=== PATIENT | female | born 1950 | race Caucasian/White ===

== ENCOUNTER 2016-06-26 12:16 | Emergency (ER) | payer BC ==
[~2016-06-26] VITALS: Ht 152.4 cm; Wt 79.2 kg
[~2016-06-26 12:16] MED LIST: ATOR-22 PO; DIPH-437 PO; LORA-741 PO; LOSA1TAB PO; OMEG10007 PO; VITACAP26 PO; ZINC1CAP PO
[2016-06-26 12:20] VITALS: TEMP 36.9; Ht 152.4 cm; Wt 79.2 kg
[2016-06-26] MEDS ORDERED: omega red PO (12:34)
[2016-06-26] MEDS ORDERED: ASPI81TA28 PO (12:34)
[2016-06-26] MEDS ORDERED: [UNRECOGNIZED DRUG - OTHER] (12:34)
[2016-06-26] MEDS ORDERED: DIPH1TAB PO (12:34)
[2016-06-26] MEDS ORDERED: HYZ/10015 PO (12:34)
[2016-06-26] MEDS ORDERED: MULT-506 PO (12:35)
--- NOTE | 2016-06-26 12:56 | EMERGENCY ROOM VISIT NOTE ---
History Report prepared by Anali: Elan Eckert Under the Supervision of: Dr. Fermin Fraire D.O. First contact with patient: 12:40 Chief Complaint: HYPERTENSION Stated Complaint: ELEVATED BP History of Present Illness The patient is a 65 year old female with a history of hypertension who presents to the Emergency Room with complaints of worsening hypertension that started a few days ago. Her last reading prior to arrival was 170/101. She says she has been on her blood pressure medication for 4 years, and she has not had any changes in her medication. The patient does note that ever since she was put on the medication, she has had this woozy feeling and a slight headache. She denies any new symptoms, except for some anxiety, which is normal for when she is hypertensive. The patient specifically denies any nausea, chest pain, shortness of breath, or urinary symptoms. She tried to get an appointment with her primary care doctor, but she could not get one until later this afternoon. The patient had melanoma removed in January, and has a history of lymph node removal. Source of History: patient Onset: A few days ago Position: other (global - hypertension) Symptom Intensity: 170/101 prior to arrival Timing: worsening Associated Symptoms: No SOB, No chest pain, No nausea, No urinary symptoms Note: Associated symptoms: Anxiousness. Review of Systems See HPI for pertinent positives & negatives. A total of 10 systems reviewed and were otherwise negative. Past Medical & Surgical Medical Problems: (1) HTN (hypertension) Surgical Problems: (1) History of cholecystectomy Family History Cancer Gallbladder disease Hypertension Social History Smoking Status: Never Smoker Smokeless Tobacco Use: No Alcohol Use: none Marital Status: Housing Status: lives with family Occupation Status: unemployed Current/Historical Medications Scheduled Aspirin (Aspirin Ec), 81 MG PO QAM Atorvastatin (Lipitor), 20 MG PO QPM Diphenhydramine Hcl (Benadryl Allergy), 25 MG PO QAM Hctz/Losartan (Hyzaar 25MG/100MG), 1 TAB PO QAM Lorazepam (Ativan), 0.5 MG PO DIRECTED Multivitamin (Multivitamin), 1 TAB PO DAILY [omega red], 1 TAB PO QAM Allergies Coded Allergies: No Known Allergies (Verified , 06/26/16) Physical Exam Vital Signs Date Time Temp Pulse Resp B/P Pulse Ox O2 Delivery O2 Flow Rate FiO2 06/26/16 15:15 92 18 133/92 97 Room Air 06/26/16 14:21 89 16 150/96 97 Room Air 06/26/16 13:26 85 18 144/88 98 Room Air 06/26/16 13:20 92 16 144/88 97 Room Air 06/26/16 13:16 85 06/26/16 13:10 98 Room Air 06/26/16 13:10 98 Room Air 06/26/16 12:20 36.9 107 18 167/117 97 Room Air Physical Exam GENERAL: Patient is awake, alert, and in no acute distress. Patient is resting comfortably and showing no signs of anxiety EYES: The conjunctivae are clear. The pupils are round and reactive. EARS, NOSE, MOUTH AND THROAT: The nose is without any evidence of any deformity. Mucous membranes are moist tongue is midline NECK: The neck is nontender and supple. RESPIRATORY: Normal respiratory effort is noted there is no evidence of wheezing rhonchi or rales CARDIOVASCULAR: Regular rate and rhythm noted there no murmurs rubs or gallops normal S1 normal S2 GASTROINTESTINAL: The abdomen is soft. Bowel sounds are present in all quadrants. Abdomen is nontender MUSCULOSKELETAL/EXTREMITIES: There is no evidence of gross deformity full range of motion is noted in the hips and shoulders SKIN: There is no obvious evidence of any rash. There are no petechiae, pallor or cyanosis noted. NEUROLOGIC: Patient is awake alert and oriented x3 strength is symmetric patellar reflexes are 2+ bilaterally Medical Decision & Procedures ER Provider Diagnostic Interpretation: Radiology results as stated below per my review and radiologist interpretation: CT HEAD WITHOUT CONTRAST (CT) CLINICAL HISTORY: Headache, hypertension, near-syncope. COMPARISON STUDY: No previous studies for comparison. TECHNIQUE: Axial CT of the brain is performed from the vertex to the skull base. IV contrast was not administered for this examination. CT DOSE: 537.48 mGy.cm FINDINGS: No intra or extra-axial mass lesions are visualized. There is no CT evidence of acute cortical infarction. There is no evidence of midline shift. There is no acute hemorrhage. No calvarial fractures are visualized. There is no evidence of pathologic ventricular dilatation. There is no evidence of acute sinusitis IMPRESSION: Normal noncontrast head CT for age Electronically signed by: Mason Solomon M.D. 06/26/2016 1:38 PM Dictated Date/Time: 06/26/2016 1:37 PM CHEST ONE VIEW PORTABLE CLINICAL HISTORY: Atypical chest pain. Hypertension. COMPARISON STUDY: No previous studies for comparison. FINDINGS: The cardiac and mediastinal contours are normal. There is no evidence of focal pulmonary consolidation. There is no evidence of failure. No pleural effusions are visualized.[ IMPRESSION: No active disease in the chest. Electronically signed by: Mason Solomon M.D. 06/26/2016 1:07 PM Dictated Date/Time: 06/26/2016 1:07 PM Laboratory Results 06/26/16 13:20 Red Blood Count 4.69, Mean Corpuscular Volume 88.9, Mean Corpuscular Hemoglobin 29.4, Mean Corpuscular Hemoglobin Concent 33.1, Mean Platelet Volume 10.0, Neutrophils (%) (Auto) 64.9, Lymphocytes (%) (Auto) 25.4, Monocytes (%) (Auto) 8.9, Eosinophils (%) (Auto) 0.4, Basophils (%) (Auto) 0.3, Neutrophils # (Auto) 5.77, Lymphocytes # (Auto) 2.26, Monocytes # (Auto) 0.79, Eosinophils # (Auto) 0.04, Basophils # (Auto) 0.03 06/26/16 13:20 Test 06/26/16 13:20 White Blood Count 8.90 K/uL (4.8-10.8) Red Blood Count 4.69 M/uL (4.2-5.4) Hemoglobin 13.8 g/dL (12.0-16.0) Hematocrit 41.7 % (37-47) Mean Corpuscular Volume 88.9 fL (80-100) Mean Corpuscular Hemoglobin 29.4 pg (25-34) Mean Corpuscular Hemoglobin Concent 33.1 g/dl (32-36) Platelet Count 360 K/uL (130-400) Mean Platelet Volume 10.0 fL (7.4-10.4) Neutrophils (%) (Auto) 64.9 % Lymphocytes (%) (Auto) 25.4 % Monocytes (%) (Auto) 8.9 % Eosinophils (%) (Auto) 0.4 % Basophils (%) (Auto) 0.3 % Neutrophils # (Auto) 5.77 K/uL (1.4-6.5) Lymphocytes # (Auto) 2.26 K/uL (1.2-3.4) Monocytes # (Auto) 0.79 K/uL (0.11-0.59) Eosinophils # (Auto) 0.04 K/uL (0-0.5) Basophils # (Auto) 0.03 K/uL (0-0.2) RDW Standard Deviation 43.0 fL (36.4-46.3) RDW Coefficient of Variation 13.2 % (11.5-14.5) Immature Granulocyte % (Auto) 0.1 % Immature Granulocyte # (Auto) 0.01 K/uL (0.00-0.02) Anion Gap 7.0 mmol/L (3-11) Est Creatinine Clear Calc Drug Dose 58.9 ml/min Estimated GFR () 77.8 Estimated GFR (Non- 67.1 BUN/Creatinine Ratio 12.3 (10-20) Calcium Level 9.4 mg/dl (8.5-10.1) Total Bilirubin 0.4 mg/dl (0.2-1) Direct Bilirubin mg/dl (0-0.2) Aspartate Amino Transf (AST/SGOT) U/L (15-37) Alanine Aminotransferase (ALT/SGPT) 39 U/L (12-78) Alkaline Phosphatase 100 U/L (45-117) Troponin I < 0.015 ng/ml (0-0.045) Total Protein 7.7 gm/dl (6.4-8.2) Albumin 4.1 gm/dl (3.4-5.0) Lipase 128 U/L (73-393) Laboratory results per my review. ECG Indication: other (hypertension) Rate (beats per minute): 88 Rhythm: normal sinus Findings: no ectopy, other (no acute ST segment abnormalities) Change: no significant change (from September 21 2007) ED Course 1248: The patient was evaluated in room C8. A complete history and physical examination were performed. 1442: Upon reevaluation, the patient is resting comfortably. I discussed the results and treatment plan with her. She verbalized agreement of the treatment plan. She was discharged home. Medical Decision Differential diagnosis: Etiologies such as benign hypertension, hypertensive emergency, cardiovascular pathology, pheochromocytoma, electrolyte abnormality, renal disease, endorgan damage, as well as others were entertained. Nursing notes reviewed. The patient is a 65-year-old female who presented to the emergency department because of elevated blood pressure. The patient has a history of hypertension. She was very concerned because her blood pressure appears to be increasing. The patient states that she has been compliant with her what pressure medication. I discussed the patient's laboratory and radiographic studies with her. I do feel she is anxious and I would be very reluctant to make any changes to her blood pressure medication. With simple observation the patient's blood pressure did respond well and come down to a better level. At this time of encouraged her to continue to monitor her blood pressure and record the monitoring numbers. She was also encouraged to follow-up with her primary care physician this is possible for further evaluation. She was also encouraged to return to the emergency department immediately if symptoms change worsen or if the need arises. Impression Primary Impression: HTN (hypertension) Scribe Attestation The scribe's documentation has been prepared under my direction and personally reviewed by me in its entirety. I confirm that the note above accurately reflects all work, treatment, procedures, and medical decision making performed by me. Departure Information Dispostion Home / Self-Care Referrals Sneha Germain D.O. (PCP) Forms HOME CARE DOCUMENTATION FORM, IMPORTANT VISIT INFORMATION, WORK / SCHOOL INSTRUCTIONS Patient Instructions Hypertension Control, My [facility] Additional Instructions Call your family to schedule a follow-up appointment. Continue all medications as prescribed. Rest and avoid any strenuous activity. Problem Qualifiers Primary Impression: HTN (hypertension)
--- NOTE | 2016-06-26 13:09 | DIAGNOSTIC IMAGING REPORT ---
CHEST ONE VIEW PORTABLE CLINICAL HISTORY: Atypical chest pain. Hypertension. COMPARISON STUDY: No previous studies for comparison. FINDINGS: The cardiac and mediastinal contours are normal. There is no evidence of focal pulmonary consolidation. There is no evidence of failure. No pleural effusions are visualized.[ IMPRESSION: No active disease in the chest. Electronically signed by: Mason Solomon M.D. 06/26/2016 1:07 PM Dictated Date/Time: 06/26/2016 1:07 PM
[2016-06-26 13:10] VITALS: O2SAT 98
[2016-06-26 13:36] LABS: BASO % 0.3 %; BASO ABS # 0.03 K/uL (0-0.2); COMPLETE YES; EOS % 0.4 %; HEMATOCRIT 41.7 % (37-47); IG% 0.1 %; LYMPH % 25.4 %; LYMPH ABS # 2.26 K/uL (1.2-3.4); MEAN CELL VOLUME 88.9 fL (80-100); MEAN CORPUSCULAR HEMOGLOBIN 29.4 pg (25-34); MEAN CORPUSCULAR HGB CONC 33.1 g/dl (32-36); MONO % 8.9 %; NEUT % 64.9 %; PLATELET COUNT 360 K/uL (130-400); RED BLOOD COUNT 4.69 M/uL (4.2-5.4)
--- NOTE | 2016-06-26 13:39 | DIAGNOSTIC IMAGING REPORT ---
CT HEAD WITHOUT CONTRAST (CT) CLINICAL HISTORY: Headache, hypertension, near-syncope. COMPARISON STUDY: No previous studies for comparison. TECHNIQUE: Axial CT of the brain is performed from the vertex to the skull base. IV contrast was not administered for this examination. CT DOSE: 537.48 mGy.cm FINDINGS: No intra or extra-axial mass lesions are visualized. There is no CT evidence of acute cortical infarction. There is no evidence of midline shift. There is no acute hemorrhage. No calvarial fractures are visualized. There is no evidence of pathologic ventricular dilatation. There is no evidence of acute sinusitis IMPRESSION: Normal noncontrast head CT for age Electronically signed by: Mason Solomon M.D. 06/26/2016 1:38 PM Dictated Date/Time: 06/26/2016 1:37 PM
[2016-06-26 14:10] LABS: ALKALINE PHOSPHATASE 100 U/L (45-117); ALT/SGPT 39 U/L (12-78); BLOOD UREA NITROGEN 11 mg/dl (7-18); BUN/CREATININE RATIO 12.3 (10-20); CALCIUM 9.4 mg/dl (8.5-10.1); CARBON DIOXIDE 30 mmol/L (21-32); CHLORIDE 105 mmol/L (98-107); CREATININE 0.91 mg/dl (0.60-1.20); GLUCOSE 87 mg/dl (70-99); SODIUM 142 mmol/L (136-145)
[2016-06-26 15:15] VITALS: BP 133/92; PULSE 92; O2SAT 97
== END 2016-06-26 15:15 | disposition home or self-care (01) ==
LOC: C.EDB 12:17 → C.EDC 15:15
DX: I10 Essential (primary) hypertension (principal); Z79.82 Long term (current) use of aspirin; Z79.899 Other long term (current) drug therapy; Z85.820 Personal history of malignant melanoma of skin; Z82.49 Family history of ischemic heart disease and other diseases of the circulatory system; Z83.79 Family history of other diseases of the digestive system